=== PATIENT | male | born 1935 | race Caucasian/White ===

== ENCOUNTER 2019-06-03 08:52 | Inpatient (IN) | payer MEDICARE ==
[2019-06-03] MEDS ORDERED: Senokot S 8.6-50 MG TAB PO PRN (13:06)
[2019-06-03] MEDS ORDERED: Acetaminophen 325 MG TAB PO PRN (13:06)
[2019-06-03] MEDS ORDERED: HYDROcodone/Acetaminophen 5/325 mg Tablet PO PRN (13:06)
[2019-06-03 13:14] LABS: Troponin I 0.032 ng/mL (< 0.028)
[2019-06-03] MEDS ORDERED: HumaLOG 300 UNITS/3 ML VIAL SC PRN (13:20)
[2019-06-03] MEDS ORDERED: Dextrose 50% Abboject 50 ML SYRINGE SLOW IVP PRN (13:20)
[2019-06-03] MEDS ORDERED: Dextrose 5% in Water 1,000 ML IV PRN (13:20)
--- NOTE | 2019-06-03 14:48 | HP ---
PRIMARY CARE PHYSICIAN: Dr. Coe. CHIEF COMPLAINT: Chest pain. HISTORY OF PRESENT ILLNESS: Mr. Perez is a very pleasant 84-year-old male, who was seen at the emergency room in [facility] for evaluation of chest pain, which he said it woke him up from sleep at 04:30 a.m. He took no medication except 2 baby aspirin, which did not help. Pain was worse when getting ready for the day and is still present. Describes pain as a throbbing pain in left side of his chest with no radiation. Denies any diaphoresis, shortness of breath, or nausea. Denies any medical problems except for BPH. No fever. No history of CAD, no family history of CAD, and has not had a need for any cardiac evaluation in his past. He has had no history of DVT, PE, recent travel, immobilization, surgery, cancer, or hemoptysis. Surgical history, only had an ulcer that required surgery and reports that he had a partial gastrectomy at the age of 25. During his evaluation at the ER in [place], the patient was noted to have his heart rate dipped into the mid 30s without apparent AVB and was improved with an administration of an amp of atropine. At that point, his O2 sats lowered into the mid 80s despite supplemental O2 by nasal cannula. The patient reported near complete relief of his pain and was placed on a non-rebreather at that point, which resolved his hypoxia. He remained hemodynamically stable for the remainder of his stay. The Hospitalist Service was initially contacted for direct admit from [place], but due to his bradycardic event and his hypoxia, it was decided that he needed to come to the ER, ER to ER transfer prior to admission. His initial EKG in the [facility] ER is normal sinus rhythm, beats per minute 63 with infrequent premature ventricular complexes. ST segments and T-waves are normal. [place] is normal. A repeat EKG showed a normal sinus rhythm, beats at 92. No changes. No STEMI. He was transferred to [facility] ER for admission for chest pain and subsequent bradycardia. He was noted to have elevated glucose at 256 without any history of diabetes. The patient will be admitted to the observation unit for further management. REVIEW OF SYSTEMS: The patient reports chest pain. Denies any radiation. Denies any chest pain currently. Denies any diaphoresis, syncope, palpitations, cough, shortness of breath, fever, chills. Denies any dysuria, output changes. All other systems are reviewed and are negative unless mentioned in the HPI. PAST MEDICAL HISTORY: 1. BPH. 2. He has had a stomach ulcer when he was younger. PAST SURGICAL HISTORY: Partial gastrectomy at the age of 25 for an ulcer. SOCIAL HISTORY: Lives in [place] with his . He denies any alcohol or drug use. He has no smoking history. ALLERGIES: NONE. CURRENT MEDICATIONS: 1. Flomax 0.4 mg p.o. once a day. 2. Baby aspirin 81 mg 2 tabs once a day. PHYSICAL EXAMINATION: VITAL SIGNS: Blood pressure 141/82, pulse is 87, respirations 23, temp is 97.6, O2 sats are 100% on non-rebreather. Currently, the patient is 95% on room air. LABORATORY DATA: White blood cell count 10.6, hemoglobin 10.8, hematocrit 37.2, and platelet count is 202. Sodium 133, potassium 4.4, chloride 105, carbon dioxide 20, creatinine 1.16, estimated GFR 76, BUN is 15, glucose is 256, calcium is 8.7. Liver enzymes are unremarkable. The last lipids we have from 2018 were also unremarkable. PLAN/ASSESSMENT: 1. Chest pain and then bradycardia while he was in the emergency room, which was treated with an amp of atropine. We will ask Cardiology to consult. Order an echocardiogram. We will repeat lipids. Order TSH, A1c. Continue aspirin daily. 2. Hyperglycemia without any history of diabetes. Again, we will order an A1c. We will trend. 3. History of benign prostatic hypertrophy. We will continue the Flomax. 4. Deep venous thrombosis and gastrointestinal prophylaxis have been started. 5. Case was discussed with Dr. Tenorio, who agrees with the plan. 6. Hospital course dependent on clinical findings. Job ID: [id number]
[2019-06-03 15:49] LABS: Hemoglobin A1c 6.7 % (4.0-6.0)
[2019-06-03 16:05] VITALS: BMI 21.0
[2019-06-03 16:06] LABS: Troponin I 0.026 ng/mL (< 0.028)
[2019-06-03] MEDS: Famotidine 20 MG TAB PO SCH (19:38)
[2019-06-04 05:51] LABS: #Lymphocytes 1.4 thou/uL (1.20-3.40); #Neutrophils 5.7 thou/uL (1.40-6.50); %Basophils 0.5 % (0.0-1.0); %Eosinophils 0.3 % (0.0-10.0); %Lymphocytes 17.3 % (21.0-51.0); %Monocytes 12.4 % (0.0-10.0); %Neutrophils 69.5 % (42.0-75.0); Mean Corpuscular HGB CONC 32.1 g/dL (32.0-36.0); Mean Corpuscular Hemoglobin 26.3 pg (27.0-31.0); Mean Platelet Volume 8.9 fL (7.4-10.4); Platelet Count 184 thou/uL (130-400); RBC Distribution Width 15.4 % (11.5-14.5); Red Blood Cell (RBC) Count 4.19 mill/uL (4.70-6.10); White Blood Cell (WBC) Count 8.2 thou/uL (4.8-10.8)
[2019-06-04 06:13] LABS: Anion Gap 10 mmol/L (10-20); BUN (Urea Nitrogen) 12 mg/dL (8.4-25.7); Calc. Creatinine Clearance 57 mL/min (70-130); Calcium 8.6 mg/dL (7.8-10.44); Carbon Dioxide 26 mmol/L (23-31); Cardiac Risk 2.3 (Less than 4.5); Chloride 105 mmol/L (98-107); Cholesterol 152 mg/dl (< 200 Desired); Estimated GFR-MDRD 77; Glucose 131 mg/dL (83-110); HDL Cholesterol 66 mg/dL (>60 Neg Risk); LDL Cholesterol, Calculated 79 mg/dL; Potassium 4.5 mmol/L (3.5-5.1); Sodium 136 mmol/L (136-145); Triglycerides 37 mg/dL (Less than 150)
[2019-06-04] MEDS ORDERED: Prevnar 13-Val Conj/PF 0.5 ML SYRINGE IM ONE (09:00)
[2019-06-04] MEDS ORDERED: FLU VACC TS2019-20(65YR UP)/PF 180 MCG/0.5 ML SYRINGE IM ONE (09:00)
[2019-06-04] MEDS ORDERED: Enoxaparin Sodium 40 MG/0.4 ML SYRINGE SC SCH (09:00)
[2019-06-04] MEDS: Famotidine 20 MG TAB PO SCH ×2 (10:18→19:58)
[2019-06-04] MEDS ORDERED: Communication Order-Pharmacy FS SCH (12:30)
--- NOTE | 2019-06-04 13:26 | CON ---
DATE OF CONSULTATION: 06/04/2019 REASON FOR CONSULTATION: Chest pain at rest with borderline cardiac enzymes. HISTORY OF PRESENT ILLNESS: Mr. Tom Perez is a very pleasant 84-year-old gentleman. The patient was with his usual state of good health. 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 He had already drank coffee, he is feeling fine. Then, he had substernal chest pain. He allowed his family to bring him to the emergency room. While he was in the emergency room, he had severe substernal chest pain and then developed symptomatic bradycardia. He required intravenous atropine to improve his heart rate. He said he has never had episodes like that before. He has been feeling okay now. The patient ended up normalized active. He does chores around [place] 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 He otherwise has been in good physical condition. The patient also was given nitroglycerin as well as aspirin yesterday. PAST MEDICAL HISTORY: The patient's only medicines were Flomax. No history of hypertension. No hypercholesterolemia. Otherwise, he had been a very healthy gentleman. REVIEW OF SYSTEMS: CONSTITUTIONAL: No significant weight gain or loss. VISION: No changes. HEARING: No changes. PULMONARY: No cough or wheezing. GASTROINTESTINAL: No nausea, vomiting, or diarrhea. SKIN: No rashes. NEUROLOGIC: No unilateral weakness or numbness. PSYCHIATRIC: No unusual depression or anxiety. HEMATOLOGIC: No unusual bruising. GENITOURINARY: No burning with urination. SOCIAL HISTORY: No alcohol or tobacco. FAMILY HISTORY: Noncontributory. No mention of heart disease at a young age. PHYSICAL EXAMINATION: GENERAL: On examination, his blood pressure 154/84 and pulse 80 and it is regular. HEENT: Eyes, sclerae nonicteric. Mouth, mucous membranes moist. NECK: Supple. No lymphadenopathy. LUNGS: Clear. No wheezing, rales, or rhonchi. CARDIAC: Normal S1 and normal S2. There is no murmur, rub, or gallop. ABDOMEN: Soft and nontender. EXTREMITIES: Warm and dry. No clubbing or cyanosis. There is no edema. Good peripheral pulses. PERTINENT LABORATORIES: Blood sugar is elevated at 188. The patient also had an episode of nonsustained ventricular tachycardia, 6 beats yesterday evening. Pertinent laboratory also the patient's LDL cholesterol 79. Troponin level of 0.032 indeterminate. ASSESSMENT: 1. Chest pain suggestive of unstable angina. 2. Symptomatic bradycardia requiring atropine associated with chest pain. 3. Nonsustained ventricular tachycardia. PLAN: Recommending proceed to cardiac catheterization, may have a severe coronary stenosis. Discussed options including stress testing instead of catheterization. Discussed the catheterization would give him a more definitive answer and may give him more definitive therapy if stent implantation is indicated for a severe lesion. Discussed risk of catheterization, stroke, heart attack, iodine allergy, and loss of blood supply to leg or kidney. Discusses the risk of stent including those above plus vessel perforation, bleeding, bleeding at the catheterization site, emergency bypass surgery, and stent thrombosis and restenosis. He understands and wished to proceed. We will arrange for this tomorrow. Job ID: [id number]
--- NOTE | 2019-06-04 18:03 | PDOC.HOSPP ---
- Subjective Encounter Date: 06/04/19 Encounter Time: 17:55 Subjective: f/u for CP with subsequent bradycardia and hypoxia receiving Atropine x 1 dose in ED. Remains in NSR and feels ok overall. Cardiology planning on [facility] in am. - Objective Vital Signs & Weight: Vital Signs (12 hours) Temp Pulse Resp BP Pulse Ox 06/04/19 16:30 97.8 F 73 16 163/74 H 95 06/04/19 11:49 97.9 F 80 20 154/81 H 97 06/04/19 08:10 98.5 F 76 18 167/81 H 95 Weight Weight 151 lb 1.6 oz I&O: 06/03/19 06/04/19 06/05/19 06:59 06:59 06:59 Intake Total 480 Output Total 0 Balance 480 Result Diagrams: 06/04/19 05:09 06/04/19 05:09 Additional Labs: Accuchecks 06/04/19 06/03/19 10:43 21:18 POC Glucose 148 H 188 H Laboratory Tests 06/03/19 06/03/19 06/03/19 09:17 12:34 15:24 Hemoglobin A1c Troponin I 0.015 0.032 H 0.026 Triglycerides Cholesterol LDL Cholesterol, Calc HDL Cholesterol TSH 3rd Generation 06/03/19 06/03/19 06/04/19 15:24 15:24 05:09 Hemoglobin A1c 6.7 H Troponin I Triglycerides 37 Cholesterol 152 LDL Cholesterol, Calc 79 HDL Cholesterol 66 TSH 3rd Generation 0.4094 Radiology Reviewed by me: Yes (2D echo - EF 55-60%, mod LAE) EKG Reviewed by me: Yes (Tele - SR) Hospitalist ROS - Medication Medications: Active Medications Generic Name Dose Route Start Last Admin Trade Name Freq PRN Reason Stop Dose Admin Famotidine 20 mg 06/03/19 21:00 06/04/19 10:18 Pepcid PO 20 mg BID MALIKA Administration - Exam General Appearance: NAD, awake alert Eye: PERRL, anicteric sclera ENT: normocephalic atraumatic, no oropharyngeal lesions Neck: supple, symmetric, no JVD, no thyromegaly, no lymphadenopathy Heart: RRR, no murmur, no gallops, no rubs, normal peripheral pulses Respiratory: CTAB, no wheezes, no rales, no ronchi, normal chest expansion Gastrointestinal: soft, non-tender, non-distended, normal bowel sounds Extremities: no cyanosis, no clubbing, no edema Skin: normal turgor, no lesions Neurological: cranial nerve grossly intact, no new deficit Musculoskeletal: normal tone, normal strength Psychiatric: normal affect, A&O x 3 Hosp A/P (1) Chest pain Code(s): R07.9 - CHEST PAIN, UNSPECIFIED Status: Acute Plan: ? ischemia leading to angina and bradycardia, plan for heart cath in am, resume ASA 81mg daily, EF 55-60% (2) Bradycardia Code(s): R00.1 - BRADYCARDIA, UNSPECIFIED Status: Acute Plan: ? secondary to ischemia, see above in #1 (3) HTN (hypertension) Code(s): I10 - ESSENTIAL (PRIMARY) HYPERTENSION Status: Chronic Qualifiers: Hypertension type: essential hypertension Qualified Code(s): I10 - Essential (primary) hypertension Plan: Resume Proscar and monitor BP response, may need additional coverage for optimal control (4) DM w/o complication type II, uncontrolled Code(s): E11.65 - TYPE 2 DIABETES MELLITUS WITH HYPERGLYCEMIA Status: Chronic Plan: Untreated currently, will discuss options for low-dose oral hypoglycemics for d/ c - Plan out of bed/ambulate, DVT proph w/SCDs Stable currently Resume ASA 81mg daily Resume Proscar Plan for heart catheterization in am Likely home in 24h
[2019-06-05] MEDS: Sodium Chloride 0.9% 1,000 ML IV SCH ×2 (05:43→18:44)
[2019-06-05] MEDS: Famotidine 20 MG TAB PO SCH ×2 (07:04→20:48)
[2019-06-05] MEDS ORDERED: Finasteride 5 MG TAB PO SCH (09:00)
[2019-06-05] MEDS ORDERED: Aspirin 81 mg Enteric Coated Tablet PO SCH (09:00)
[2019-06-05] MEDS ORDERED: Lidocaine 1% (PF) 30 ML VIAL ONE (09:47)
[2019-06-05] MEDS ORDERED: Nitroglycerin 100MG/250ML BOT 250 ML ONE (10:41)
[2019-06-05] MEDS ORDERED: Sodium Chloride 0.9% 200 ML IV PRN (11:08)
[2019-06-05] MEDS ORDERED: Nitroglycerin 0.4 MG TAB (25 Tab Bottle) SL PRN (11:08)
[2019-06-05] MEDS ORDERED: Acetaminophen/Codeine 30-300mg Tablet PO PRN ×2 (11:08)
[2019-06-05] MEDS ORDERED: Communication Order-Pharmacy FS ONE (12:03)
--- NOTE | 2019-06-05 13:32 | CON ---
DATE OF CONSULTATION: 06/05/2019 REASON FOR CONSULTATION: Evaluate the patient for coronary artery bypass grafting. CONSULTING PHYSICIAN: Rober Zee MD HISTORY OF PRESENT ILLNESS: Mr. Perez is an 84-year-old gentleman, who was admitted to the hospital through the emergency department. He was noted at home to have had chest pain and fatigue and really just not feeling good at home over the last 24 hours. He came to the emergency department, his EKG was normal. His initial troponin was 0.015, which elevated to 0.032 during his early admission. Today, he was taken to the cardiac catheterization lab and found to have severe LAD and right coronary stenosis with good bypassable distal targets. Ejection fraction is approximately 70% on ventriculogram. I have been asked to see him and discuss coronary artery bypass grafting. PAST MEDICAL HISTORY: BPH. PAST SURGICAL HISTORY: None. CURRENT MEDICATIONS: At home; 1. Proscar 5 mg daily. 2. Aspirin 81 mg daily. ALLERGIES: NONE. SOCIAL HISTORY: He does not use tobacco or alcohol. PHYSICAL EXAMINATION: GENERAL: This is a well-developed, well-nourished man, resting comfortably in bed. VITAL SIGNS: Height is 5 feet and 11 inches, weight is 151 pounds, BSA is 1.85. Temperature is 97.8, pulse is 84 and regular, and blood pressure is 163/78. HEENT: Sclerae are nonicteric. Pupils are equal and round bilaterally. NECK: Supple without bruit. CHEST: Clear bilaterally. HEART: Rhythm is regular without murmur. ABDOMEN: Soft and nontender, without mass. EXTREMITIES: There is no edema. VASCULAR: He has palpable carotid, radial femoral, and dorsalis pedis pulses bilaterally. VENOUS: There is no venous varicosities or venous stasis changes. PSYCHIATRIC: He is awake, alert, and oriented to person, place, and time. ASSESSMENT AND PLAN: This is a pleasant 84-year-old gentleman, who is in the hospital with chest pain and non-ST elevation myocardial infarction. Catheterization is showing left anterior descending, right coronary stenosis. Bypassable targets include a left anterior descending and distal right coronary. He is agreeable to proceed tomorrow with bypass as above. Job ID: [id number]
--- NOTE | 2019-06-05 18:08 | RAD ---
FRONTAL RADIOGRAPH CHEST: Date: 06/05/19 COMPARISON: 06/03/19. HISTORY: Evaluate chest prior to CABG. FINDINGS: Stable mild increased linear interstitial density and pulmonary hyperinflation. Heart and mediastinal contours stable. No pneumothorax, pleural fluid, focal consolidation, or alveolar edema. IMPRESSION: No significant interval change. POS: [facility]
--- NOTE | 2019-06-05 19:14 | PDOC.HOSPP ---
- Subjective Encounter Date: 06/05/19 Encounter Time: 16:30 Subjective: f/u for chest pain, NSTEMI with heart cath showing 2v CAD with recs for CABG. Plan for CABG on 05/07/19 - Objective Vital Signs & Weight: Vital Signs (12 hours) Temp Pulse Resp BP Pulse Ox 06/05/19 15:35 98.2 F 76 19 127/60 96 06/05/19 12:00 61 111/61 06/05/19 11:09 98 Weight Weight 151 lb 1.6 oz I&O: 06/04/19 06/05/19 06/06/19 06:59 06:59 06:59 Intake Total 480 970 Output Total 0 Balance 480 970 Result Diagrams: 06/04/19 05:09 06/04/19 05:09 Additional Labs: Accuchecks 06/05/19 06/05/19 06/04/19 16:32 05:43 21:01 POC Glucose 133 H 113 H 127 H Laboratory Tests 06/03/19 06/03/19 06/03/19 09:17 12:34 15:24 Hemoglobin A1c Troponin I 0.015 0.032 H 0.026 Triglycerides Cholesterol LDL Cholesterol, Calc HDL Cholesterol TSH 3rd Generation 06/03/19 06/03/19 06/04/19 15:24 15:24 05:09 Hemoglobin A1c 6.7 H Troponin I Triglycerides 37 Cholesterol 152 LDL Cholesterol, Calc 79 HDL Cholesterol 66 TSH 3rd Generation 0.4094 Radiology Reviewed by me: Yes ([facility] - severe 2v CAD, EF 60%) EKG Reviewed by me: Yes (Tele - SR) Hospitalist ROS - Medication Medications: Active Medications Generic Name Dose Route Start Last Admin Trade Name Freq PRN Reason Stop Dose Admin Aspirin 81 mg 06/05/19 09:00 06/05/19 07:04 Ecotrin PO 81 mg DAILY MALIKA Administration Famotidine 20 mg 06/03/19 21:00 06/05/19 07:04 Pepcid PO 20 mg BID MALIKA Administration Finasteride 5 mg 06/05/19 09:00 06/05/19 07:04 Proscar PO 5 mg DAILY MALIKA Administration - Exam General Appearance: NAD, awake alert Eye: PERRL, anicteric sclera ENT: normocephalic atraumatic, no oropharyngeal lesions Neck: supple, symmetric, no JVD, no thyromegaly, no lymphadenopathy Heart: RRR, no murmur, no gallops, no rubs, normal peripheral pulses Respiratory: CTAB, no wheezes, no rales, no ronchi, normal chest expansion Gastrointestinal: soft, non-tender, non-distended, normal bowel sounds, no palpable masses Extremities: no cyanosis, no clubbing, no edema Skin: normal turgor, no lesions Neurological: cranial nerve grossly intact, no focal deficits, no new deficit Musculoskeletal: normal tone, normal strength Psychiatric: normal affect, A&O x 3 Hosp A/P (1) NSTEMI (non-ST elevated myocardial infarction) Code(s): I21.4 - NON-ST ELEVATION (NSTEMI) MYOCARDIAL INFARCTION Status: Acute Plan: Continue ASA, Nitroglycerin, see below for mgmt (2) 2-vessel coronary artery disease Code(s): I25.10 - ATHSCL HEART DISEASE OF [place] CORONARY ARTERY W/O ANG PCTRS Status: Chronic Plan: Plan for CABG in am 06/06/19 (3) Chest pain Code(s): R07.9 - CHEST PAIN, UNSPECIFIED Status: Acute Plan: Secondary to #1 (4) Bradycardia Code(s): R00.1 - BRADYCARDIA, UNSPECIFIED Status: Acute Plan: Improved, continue mgmt as outlined previously (5) HTN (hypertension) Code(s): I10 - ESSENTIAL (PRIMARY) HYPERTENSION Status: Chronic Qualifiers: Hypertension type: essential hypertension Qualified Code(s): I10 - Essential (primary) hypertension (6) DM w/o complication type II, uncontrolled Code(s): E11.65 - TYPE 2 DIABETES MELLITUS WITH HYPERGLYCEMIA Status: Chronic Plan: ISS, start Glucophage for home after CABG - Plan continue antibiotics, social media senior associate, respiratory therapy, out of bed/ambulate , DVT proph w/SCDs Stable currently Resume ASA 81mg daily Resume Proscar Plan for CABG in am 06/06/19 Convert to inpt status
[2019-06-06] MEDS ORDERED: CEFAZOLIN 1 GM VIAL SLOW IVP SCH (06:00)
[2019-06-06] MEDS ORDERED: Albumin 5% 500 ML ONE ×2 (06:41→10:58)
[2019-06-06] MEDS ORDERED: Dexamethasone 4 mg/ml Vial ONE (10:58)
[2019-06-06] MEDS ORDERED: Bupivacaine HCl 0.5%/Epinephrine 1:200,000/PF 30 ml Vial ONE (10:58)
[2019-06-06] MEDS ORDERED: Heparin 10,000 UNITS/1 ML VIAL 30,000 UNITS in Sodium Chloride 0.9% 1,000 ML FS SCH (14:30)
[2019-06-06] MEDS ORDERED: Midazolam HCl 5 mg/5 ml Vial ONE ×2 (15:55→18:59)
[2019-06-06] MEDS ORDERED: Fentanyl 250 MCG/5 ML VIAL ONE (15:55)
[2019-06-06] MEDS ORDERED: PHENYLEPHRINE-NS 100 MCG/ML 10 ML SYRINGE ONE ×2 (18:14→19:38)
[2019-06-06] MEDS ORDERED: Rocuronium Bromide 50 MG/5 ML VIAL ONE (19:02)
[2019-06-06] MEDS ORDERED: Acetaminophen 325 MG TAB PO PRN (19:50)
[2019-06-06] MEDS ORDERED: hydrALAZINE 20 MG/ML VIAL SLOW IVP PRN (19:50)
[2019-06-06] MEDS ORDERED: Hetastarch 6% 500 ML 500 ML IVPB PRN (19:50)
[2019-06-06] MEDS ORDERED: Ondansetron PF 4 MG/2 ML Vial IVP PRN (19:50)
[2019-06-06] MEDS ORDERED: Potassium Chloride 20 MEQ/100 ML PREMIX BAG IVPB PRN (19:50)
[2019-06-06] MEDS ORDERED: Mag-Al 1200 mg/1200 mg/30 ML UDCUP PO PRN (19:50)
[2019-06-06] MEDS ORDERED: Fentanyl 100 MCG/2 ML VIAL SLOW IVP PRN ×2 (19:50)
[2019-06-06] MEDS ORDERED: traMADol HCl 50 MG TAB PO PRN ×2 (19:50)
[2019-06-06] MEDS ORDERED: Bisacodyl 5 MG TAB PO PRN (19:50)
[2019-06-06] MEDS ORDERED: Bisacodyl 10 MG SUPP PR PRN (19:50)
[2019-06-06] MEDS ORDERED: Morphine 2 MG/ML SYRINGE SLOW IVP PRN (19:50)
[2019-06-06] MEDS ORDERED: Nitroglycerin 50 MG/250 ML BOT 250 ML IVPB PRN (19:50)
[2019-06-06] MEDS ORDERED: Norepinephrine 8 MG/0.9% NS 250 ML IVPB PRN (19:50)
[2019-06-06] MEDS ORDERED: Guaifenesin DM 100-10/5 ML UDCUP PO PRN (19:50)
[2019-06-06] MEDS ORDERED: D5 1/2 NS w/20 mEq KCL 1,000 ML IV SCH (19:50)
[2019-06-06] MEDS ORDERED: Dextrose 50% Abboject 50 ML SYRINGE SLOW IVP PRN (19:59)
[2019-06-06] MEDS ORDERED: Dextrose 5% in Water 1,000 ML IV PRN (19:59)
[2019-06-06 20:03] LABS: #Basophils 0.1 thou/uL (0.0-0.2); #Eosinphils 0.2 thou/uL (0.0-0.7); #Lymphocytes 2.8 thou/uL (1.20-3.40); #Neutrophils 14.1 thou/uL (1.40-6.50); %Basophils 0.3 % (0.0-1.0); %Eosinophils 1.3 % (0.0-10.0); %Lymphocytes 15.4 % (21.0-51.0); %Monocytes 5.4 % (0.0-10.0); %Neutrophils 77.6 % (42.0-75.0); Hemoglobin 10.2 g/dL (14.0-18.0); Mean Corpuscular HGB CONC 32.1 g/dL (32.0-36.0); Mean Corpuscular Hemoglobin 26.7 pg (27.0-31.0); Mean Corpuscular Volume 83.2 fL (78.0-98.0); Mean Platelet Volume 8.5 fL (7.4-10.4); Platelet Count 178 thou/uL (130-400); RBC Distribution Width 15.7 % (11.5-14.5); Red Blood Cell (RBC) Count 3.83 mill/uL (4.70-6.10); White Blood Cell (WBC) Count 18.2 thou/uL (4.8-10.8)
[2019-06-06 20:09] LABS: Base Excess (BEa) -8.8 mEq/L (-2.0 to +3.0); CO2 Tension 42.3 mmHg (35.0-45.0); Calcium, Ionized 1.01 mmol/L (1.12-1.30); Carboxyhemoglobin (COHb) 0.5 gm% (0.0-3.0); Hemoglobin (Hb) 10.9 g/dL (14.0-18.0); O2 Tension (PaO2) 116.4 mmHg (> 60.0); Potassium - ABG Lab 4.22 mmol/L (3.70-5.30)
[2019-06-06 20:11] LABS: INR-International Normal Ratio 1.4; PTT 31.8 SEC (22.9-36.1); Prothrombin Time 17.4 SEC (12.0-14.7)
[2019-06-06 20:17] LABS: pH, Arterial 7.25 (7.35-7.45)
--- NOTE | 2019-06-06 20:17 | RAD ---
Frontal view chest COMPARISON: 06/05/2019 FINDINGS: Endotracheal tube is present with tip at inferior thoracic inlet level. Mediastinal drainag e catheter tubing is seen. There is a right subclavian venous catheter, with tip overlying right atrium. Cardiac silhouette is enlarged. There are sternotomy wires. Lungs are hyperinflated. There is left basilar density indicative of pleural fluid with adjacent atelectasis and/or pneumonia. Minimal pleural-based density at the inferior right chest is seen. Bilateral perihilar linear densiti es indicate mild vascular congestion. IMPRESSION: Postoperative chest with supportive lines and tubes as above. COPD Left basilar density indicative of pleural fluid with adjacent atelectasis and/or pneumonia. Additional details are discussed above. Transcribed Date/Time: 06/06/2019 8:33 PM
[2019-06-06 20:18] LABS: ALV-art Gradient 258.525 (0-20)
[2019-06-06] MEDS: Insulin Regular 300 UNITS/3 ML VIAL SC PRN (20:19)
[2019-06-06 20:22] LABS: Anion Gap 14 mmol/L (10-20); BUN (Urea Nitrogen) 11 mg/dL (8.4-25.7); Calc. Creatinine Clearance 78 mL/min (70-130); Calcium 6.5 mg/dL (7.8-10.44); Carbon Dioxide 18 mmol/L (23-31); Chloride 112 mmol/L (98-107); Estimated GFR-MDRD Greater than 90; Glucose 128 mg/dL (83-110); Potassium 4.3 mmol/L (3.5-5.1); Sodium 140 mmol/L (136-145)
[2019-06-06] MEDS: Simvastatin 40 MG TAB PO SCH (20:30)
[2019-06-06] MEDS ORDERED: Famotidine/PF 20 mg/2ml Vial SLOW IVP SCH (21:00)
[2019-06-06] MEDS: CEFAZOLIN 2 GM in Premix Bag 1 BAG IVPB SCH (22:00)
[2019-06-06] MEDS: Ketorolac Tromethamine 30 MG/ML VIAL IVP SCH (23:00)
[2019-06-06 23:47] LABS: Actual Bicarbonate (HCO3a) 16.2 mEq/L (22-28); Base Excess (BEa) -9.9 mEq/L (-2.0 to +3.0); CO2 Tension 36.2 mmHg (35.0-45.0); Calcium, Ionized 1.03 mmol/L (1.12-1.30); Hemoglobin (Hb) 10.8 g/dL (14.0-18.0); O2 Tension (PaO2) 127.2 mmHg (> 60.0); Potassium - ABG Lab 4.14 mmol/L (3.70-5.30); pH, Arterial 7.27 (7.35-7.45)
[2019-06-06] MEDS ORDERED: Sodium Bicarb 50 MEQ/50 ML VIAL ONE (23:59)
[2019-06-07] MEDS ORDERED: Sodium Bicarb 50 MEQ/50 ML VIAL IVP SCH (00:15)
[2019-06-07] MEDS: Insulin Regular 300 UNITS/3 ML VIAL SC PRN ×2 (01:08→04:16)
[2019-06-07 01:34] LABS: Hemoglobin 10.6 g/dL (14.0-18.0)
--- NOTE | 2019-06-07 01:39 | OP ---
DATE OF PROCEDURE: 06/06/2019 PREOPERATIVE DIAGNOSIS: Coronary artery disease/status post [id number] myocardial infarction. POSTOPERATIVE DIAGNOSIS: Coronary artery disease/status post [id number] myocardial infarction. PROCEDURES PERFORMED: Coronary artery bypass grafting x2; 1. Left internal mammary artery 1.5 mm distal LAD-good conduit target. 2. Reverse saphenous vein to 2.0 mm mid RCA-good conduit target. CONCIERGE MANAGER: Ishmael Arroyo MD ANESTHESIA: General endotracheal, Dr. Julián Major in [facility]. PUMP TIME: 39 minutes. CROSS-CLAMP TIME: 25 minutes. LOW CORE TEMPERATURE: 35 degrees Celsius. RAIL CAR REPAIRER: Marilyn Fay. DRAINS: 24-Italian and 19-Italian chest tubes. SPECIMENS: None. TRANSFUSIONS: None. DRIPS: None. DESCRIPTION OF PROCEDURE: After consent was obtained, the patient was brought to the operating room and placed in supine position on the operating room table. Appropriate central line was placed and general endotracheal anesthesia was induced. The chest and legs were prepped and draped in usual sterile fashion. Greater saphenous vein was harvest from the left thigh utilizing two skip incisions. Wounds were irrigated and closed in layers. Median sternotomy was performed. Left internal mammary artery was harvested as a pedicle graft. The patient was systemically heparinized. Distal pedicle was divided and infused with papaverine. Thymic fat and pericardium were divided with electrocautery. Pericardial stay sutures were placed. Aortic and atrial cannulation were performed. After adequate heparinization, retrograde prime was performed. The patient was placed on cardiopulmonary bypass. Distal targets were marked. Aortic cross-clamp was applied and antegrade sanguineous cardioplegic arrest was obtained. 1 L of antegrade cold [place] cardioplegia was given. Topical cold solution was used. Reverse saphenous vein was anastomosed to RCA in an end-to-side fashion with running 7-0 Prolene suture. During the anastomosis, the patient began to fibrillate. 500 mL of additional cardioplegia was given including down the graft. Mammary artery was brought through the window in the pericardium and anastomosed to the distal LAD in an end-to-side fashion with running 7-0 Prolene suture. On release of mammary clamps, good hooding anastomosis and good distal flow. Pedicle screw sutured with interrupted 6-0 Prolene suture. Cross-clamp was removed and partial occluding clamp placed. Saphenous vein was anastomosed to punch site in the aorta with running 6-0 Prolene suture. Partial occluding clamp was removed and graft was deaired. Anastomoses were inspected for hemostasis, which was good. The patient was warmed and weaned from cardiopulmonary bypass. After resumption of sinus rhythm, good hemodynamics, temperature greater than 36.5, bypass was discontinued. Transfusion was given. A 19-Italian chest tube was placed in the left pleural cavity and a 24-Italian chest tube was placed in the pericardium. Vancomycin paste was used on the sternal edges. After adequate hemostasis had been obtained, sternum was closed with #7 wire. The sternum was treated with platelet rich plasma and wire was twisted and buried. Wounds were irrigated and treated with platelet poor plasma and closed in multiple layers. Needle, sponges, and instrument counts were all reported as correct at the end of the procedure. The patient tolerated the procedure well and was transferred to the intensive care unit in stable condition. Job ID: [id number]
[2019-06-07 01:41] LABS: Potassium 4.4 mmol/L (3.5-5.1)
[2019-06-07 03:45] LABS: #Lymphocytes 0.5 thou/uL (1.20-3.40); #Monocytes 0.8 thou/uL (0.11-0.59); #Neutrophils 11.4 thou/uL (1.40-6.50); %Basophils 0.1 % (0.0-1.0); %Lymphocytes 3.5 % (21.0-51.0); %Monocytes 6.2 % (0.0-10.0); %Neutrophils 90.2 % (42.0-75.0); Hemoglobin 10.7 g/dL (14.0-18.0); Mean Corpuscular HGB CONC 32.3 g/dL (32.0-36.0); Mean Corpuscular Hemoglobin 26.7 pg (27.0-31.0); Mean Corpuscular Volume 82.5 fL (78.0-98.0); Mean Platelet Volume 8.6 fL (7.4-10.4); Platelet Count 183 thou/uL (130-400); RBC Distribution Width 15.7 % (11.5-14.5); Red Blood Cell (RBC) Count 4.01 mill/uL (4.70-6.10); White Blood Cell (WBC) Count 12.7 thou/uL (4.8-10.8)
[2019-06-07 04:00] LABS: Anion Gap 15 mmol/L (10-20); BUN (Urea Nitrogen) 15 mg/dL (8.4-25.7); Calc. Creatinine Clearance 67 mL/min (70-130); Calcium 7.3 mg/dL (7.8-10.44); Carbon Dioxide 19 mmol/L (23-31); Chloride 110 mmol/L (98-107); Estimated GFR-MDRD Greater than 90; Glucose 212 mg/dL (83-110); Potassium 4.4 mmol/L (3.5-5.1); Sodium 140 mmol/L (136-145)
[2019-06-07] MEDS: Ketorolac Tromethamine 30 MG/ML VIAL IVP SCH ×4 (05:54→23:34)
[2019-06-07] MEDS: CEFAZOLIN 2 GM in Premix Bag 1 BAG IVPB SCH ×2 (06:00→16:20)
--- NOTE | 2019-06-07 07:57 | RAD ---
PORTABLE CHEST: Date: 06/07/19 Supine exam. INDICATION: Postop open heart. CCU follow-up. COMPARISON: 06/06/19. FINDINGS: ET tube has been removed. Postop sternotomy changes are noted. Bibasilar infiltrates or atelectasis a nd small effusions. Mild vascular engorgement and mild cardiomegaly. IMPRESSION: No acute change from yesterday. Small effusions and bibasilar atelectasis or infiltrates, more pronou nced in the left lung base. POS: [facility]
[2019-06-07] MEDS ORDERED: Artificial Tears 18 DROP/0.9 ML EA EYE PRN (08:06)
[2019-06-07] MEDS ORDERED: Nitroglycerin 0.4 MG TAB (25 Tab Bottle) SL PRN (08:06)
[2019-06-07] MEDS ORDERED: Milk Of Magnesia 30 ML UDCUP PO PRN (08:06)
[2019-06-07] MEDS ORDERED: Mineral Oil ENEMA PR PRN (08:06)
[2019-06-07] MEDS ORDERED: Mag-Al 1200 mg/1200 mg/30 ML UDCUP PO PRN (08:06)
[2019-06-07] MEDS ORDERED: Bisacodyl 5 MG TAB PO PRN (08:06)
[2019-06-07] MEDS ORDERED: diphenhydrAMINE 25 MG CAP PO PRN (08:06)
[2019-06-07] MEDS ORDERED: Guaifenesin DM 100-10/5 ML UDCUP PO PRN (08:06)
[2019-06-07] MEDS ORDERED: Bisacodyl 10 MG SUPP PR PRN (08:06)
[2019-06-07] MEDS ORDERED: Zolpidem Tartrate 5 MG TAB PO PRN (08:06)
[2019-06-07] MEDS ORDERED: Aspirin 325 mg Enteric Coated Tablet PO SCH (09:00)
[2019-06-07] MEDS: Aspirin 325 MG TAB PO SCH (09:15)
--- NOTE | 2019-06-07 13:57 | PDOC.HOSPP ---
- Subjective Encounter Date: 06/07/19 Encounter Time: 13:50 Subjective: f/u s/p 2v CABG POD #1. Feels good today, ambulating, voiding ok. Minimal CP. - Objective Vital Signs & Weight: Vital Signs (12 hours) Temp Pulse Pulse BP BP Pulse Ox 06/07/19 11:39 97.8 F 06/07/19 08:57 78 83 102/69 111/67 99 06/07/19 08:00 97.9 F 06/07/19 04:00 97.6 F Weight Weight 154 lb 1.65 oz Most Recent Monitor Data Heart Rate from ECG 80 NIBP 140/80 NIBP BP-Mean 100 Respiration from ECG 24 SpO2 100 I&O: 06/06/19 06/07/19 06/08/19 06:59 06:59 06:59 Intake Total 1527 1019 Output Total 1010 120 Balance 517 899 Result Diagrams: 06/07/19 03:15 06/07/19 03:15 Additional Labs: Accuchecks 06/07/19 06/07/19 06/06/19 04:12 00:44 19:54 POC Glucose 171 H 161 H 129 H 06/06/19 06/06/19 06/06/19 19:37 18:31 17:53 POC Glucose 117 H 110 107 06/06/19 16:41 POC Glucose 116 H Laboratory Tests 06/03/19 06/03/19 06/03/19 09:17 12:34 15:24 Hemoglobin A1c Troponin I 0.015 0.032 H 0.026 Triglycerides Cholesterol LDL Cholesterol, Calc HDL Cholesterol TSH 3rd Generation 06/03/19 06/03/19 06/04/19 15:24 15:24 05:09 Hemoglobin A1c 6.7 H Troponin I Triglycerides 37 Cholesterol 152 LDL Cholesterol, Calc 79 HDL Cholesterol 66 TSH 3rd Generation 0.4094 Radiology Reviewed by me: Yes (PCXR - bibasilar atelectasis) EKG Reviewed by me: Yes (Tele - SR) Hospitalist ROS - Medication Medications: Active Medications Generic Name Dose Route Start Last Admin Trade Name Freq PRN Reason Stop Dose Admin Aspirin 325 mg 06/07/19 09:00 06/07/19 09:15 Aspirin PO 325 mg DAILY MALIKA Administration Aspirin 325 mg 06/07/19 09:00 06/07/19 09:15 Ecotrin PO Not Given DAILY MALIKA Cefazolin Sodium/Dextrose 2 gm 50 mls @ 100 mls/hr 06/06/19 23:00 06/07/19 06 :00 / Device IVPB 06/07/19 15:29 50 mls 0700,1500,2300 MALIKA Administration Magnesium Sulfate 1 gm/ Sodium 102 mls @ 102 mls/hr 06/07/19 09:00 06/07/19 09:15 Chloride IVPB 06/08/19 09:59 102 mls QAM MALIKA Administration Ketorolac Tromethamine 15 mg 06/06/19 23:59 06/07/19 12:14 Toradol IVP 06/09/19 23:59 15 mg Q6HR MALIKA Administration Ondansetron HCl 4 mg 06/06/19 19:50 06/07/19 09:19 Zofran IVP 4 mg Q6H PRN Administration Nausea/Vomiting Pantoprazole Sodium 40 mg 06/07/19 09:00 06/07/19 09:15 Protonix PO 40 mg DAILY MALIKA Administration Simvastatin 40 mg 06/06/19 21:00 06/06/19 20:30 Zocor PO Not Given QPM MALIKA Tramadol HCl 50 mg 06/06/19 19:50 06/07/19 09:20 Ultram PO 50 mg Q6H PRN Administration Pain - Exam General Appearance: NAD, awake alert Eye: PERRL, anicteric sclera ENT: normocephalic atraumatic, no oropharyngeal lesions Neck: supple, symmetric, no JVD, no thyromegaly, no lymphadenopathy Heart: RRR, no murmur, no gallops, no rubs, normal peripheral pulses Respiratory: CTAB, no wheezes, no rales, no ronchi Respiratory - other findings: midline incision intact with dressing in place Gastrointestinal: soft, non-tender, non-distended, normal bowel sounds, no palpable masses Extremities: no cyanosis, no clubbing, no edema Skin: normal turgor, no lesions Neurological: cranial nerve grossly intact, no focal deficits, no new deficit Musculoskeletal: normal tone, normal strength Psychiatric: normal affect, A&O x 3 Hosp A/P (1) NSTEMI (non-ST elevated myocardial infarction) Code(s): I21.4 - NON-ST ELEVATION (NSTEMI) MYOCARDIAL INFARCTION Status: Acute Plan: s/p 2v CABG with KENNEDY to LAD, SVG to RCA, POD #1, continue ASA, Lipitor, routine post-CABG protocol (2) 2-vessel coronary artery disease Code(s): I25.10 - ATHSCL HEART DISEASE OF [place] CORONARY ARTERY W/O ANG PCTRS Status: Chronic Plan: See above (3) Chest pain Code(s): R07.9 - CHEST PAIN, UNSPECIFIED Status: Acute (4) Bradycardia Code(s): R00.1 - BRADYCARDIA, UNSPECIFIED Status: Acute Plan: Improved, continue tele monitoring (5) HTN (hypertension) Code(s): I10 - ESSENTIAL (PRIMARY) HYPERTENSION Status: Chronic Qualifiers: Hypertension type: essential hypertension Qualified Code(s): I10 - Essential (primary) hypertension (6) DM w/o complication type II, uncontrolled Code(s): E11.65 - TYPE 2 DIABETES MELLITUS WITH HYPERGLYCEMIA Status: Chronic Plan: ISS, consider Metformin for d/c - Plan plan discussed w/ family, PT/OT, social service technician, out of bed/ambulate Stable currently ASA 325mg daily Resume Proscar OOB with PT IS, bowel regimen
[2019-06-07] MEDS: Simvastatin 40 MG TAB PO SCH (20:05)
[2019-06-08] MEDS: Ketorolac Tromethamine 30 MG/ML VIAL IVP SCH ×4 (06:03→23:55)
[2019-06-08] MEDS: Aspirin 325 MG TAB PO SCH (10:27)
--- NOTE | 2019-06-08 17:10 | PDOC.HOSPP ---
- Subjective Encounter Date: 06/08/19 Encounter Time: 17:10 Subjective: f/u for NSTEMI, s/p CABG x 2v POD #2. Feels ok overall. Ambulating in halls. Voiding appropriately. Mild CP. - Objective Vital Signs & Weight: Vital Signs (12 hours) Temp Pulse Pulse Pulse Resp BP BP 06/08/19 16:00 98.7 F 92 16 06/08/19 13:40 105 H 85 134/63 119/57 L 06/08/19 12:00 98.0 F 91 18 06/08/19 07:59 06/08/19 07:32 97.9 F 83 18 BP BP Pulse Ox Pulse Ox 06/08/19 16:00 114/61 98 06/08/19 13:40 98 06/08/19 12:00 119/63 99 06/08/19 07:59 94 L 06/08/19 07:32 119/58 L 94 L Weight Weight 154 lb 1.65 oz Most Recent Monitor Data Heart Rate from ECG 80 NIBP 140/80 NIBP BP-Mean 100 Respiration from ECG 24 SpO2 100 I&O: 06/07/19 06/08/19 06/09/19 06:59 06:59 06:59 Intake Total 1527 1789 Output Total 1010 1070 50 Balance 517 719 -50 Result Diagrams: 06/07/19 03:15 06/07/19 03:15 Additional Labs: Laboratory Tests 06/03/19 06/03/19 06/03/19 09:17 12:34 15:24 Hemoglobin A1c Troponin I 0.015 0.032 H 0.026 Triglycerides Cholesterol LDL Cholesterol, Calc HDL Cholesterol TSH 3rd Generation 06/03/19 06/03/19 06/04/19 15:24 15:24 05:09 Hemoglobin A1c 6.7 H Troponin I Triglycerides 37 Cholesterol 152 LDL Cholesterol, Calc 79 HDL Cholesterol 66 TSH 3rd Generation 0.4094 EKG Reviewed by me: Yes (Tele - SR) Hospitalist ROS - Medication Medications: Active Medications Generic Name Dose Route Start Last Admin Trade Name Freq PRN Reason Stop Dose Admin Aspirin 325 mg 06/07/19 09:00 06/08/19 10:27 Aspirin PO 325 mg DAILY MALIKA Administration Ketorolac Tromethamine 15 mg 06/06/19 23:59 06/08/19 12:39 Toradol IVP 06/09/19 23:59 15 mg Q6HR MALIKA Administration Ondansetron HCl 4 mg 06/06/19 19:50 06/07/19 09:19 Zofran IVP 4 mg Q6H PRN Administration Nausea/Vomiting Pantoprazole Sodium 40 mg 06/07/19 09:00 06/08/19 10:27 Protonix PO 40 mg DAILY MALIKA Administration Simvastatin 40 mg 06/06/19 21:00 06/07/19 20:05 Zocor PO 40 mg QPM MALIKA Administration Sodium Chloride 10 ml 06/07/19 08:06 06/08/19 12:42 Flush - Normal Saline IVF 10 ml PRN PRN Administration Saline Flush Tramadol HCl 50 mg 06/06/19 19:50 06/07/19 09:20 Ultram PO 50 mg Q6H PRN Administration Pain - Exam General Appearance: NAD, awake alert Eye: PERRL, anicteric sclera ENT: normocephalic atraumatic, no oropharyngeal lesions Neck: supple, symmetric, no JVD, no thyromegaly, no lymphadenopathy Heart: RRR, no murmur, no gallops, no rubs, normal peripheral pulses Respiratory: CTAB, no wheezes, no rales, no ronchi, normal chest expansion Respiratory - other findings: midline chest incision intact Gastrointestinal: soft, non-tender, non-distended, normal bowel sounds Extremities: no cyanosis, no clubbing, no edema Skin: normal turgor, no lesions Neurological: cranial nerve grossly intact, no new deficit Musculoskeletal: normal tone, normal strength Psychiatric: normal affect, A&O x 3 Hosp A/P (1) NSTEMI (non-ST elevated myocardial infarction) Code(s): I21.4 - NON-ST ELEVATION (NSTEMI) MYOCARDIAL INFARCTION Status: Acute (2) 2-vessel coronary artery disease Code(s): I25.10 - ATHSCL HEART DISEASE OF [place] CORONARY ARTERY W/O ANG PCTRS Status: Chronic Plan: s/p CABG x 2v POD #2, continue ASA, Zocor (3) Chest pain Code(s): R07.9 - CHEST PAIN, UNSPECIFIED Status: Acute (4) Bradycardia Code(s): R00.1 - BRADYCARDIA, UNSPECIFIED Status: Acute Plan: Resolved (5) HTN (hypertension) Code(s): I10 - ESSENTIAL (PRIMARY) HYPERTENSION Status: Chronic Qualifiers: Hypertension type: essential hypertension Qualified Code(s): I10 - Essential (primary) hypertension Plan: Relative hypotension currently, holding all antihypertensives (6) DM w/o complication type II, uncontrolled Code(s): E11.65 - TYPE 2 DIABETES MELLITUS WITH HYPERGLYCEMIA Status: Chronic Plan: Plan for home oral hypoglycemic vs dietary mgmt - Plan PT/OT, group social worker, out of bed/ambulate, DVT proph w/SCDs Stable currently ASA 325mg daily Resume Proscar OOB with PT IS, bowel regimen Likely home in am
[2019-06-08] MEDS: Simvastatin 40 MG TAB PO SCH (19:58)
[2019-06-09] MEDS: Ketorolac Tromethamine 30 MG/ML VIAL IVP SCH (05:06)
[2019-06-09] MEDS: Aspirin 325 MG TAB PO SCH (08:49)
--- NOTE | 2019-06-09 09:42 | PRG ---
DATE OF SERVICE: 06/09/2019 SUBJECTIVE: Mr. Perez is doing very well. OBJECTIVE: VITAL SIGNS: Blood pressure is 152/75, pulse 74. LUNGS: Clear. CARDIAC: Normal S1 and S2. ABDOMEN: Soft, nontender. EXTREMITIES: No edema. ASSESSMENT: 1. Status post coronary artery bypass grafting. 2. Preoperative bradycardia, possibly related to ischemia, but we will not give beta-blockers now due to the recent bradycardia. PLAN: 1. Home today. 2. Come back and see us in the office in a few weeks. Job ID: [id number]
--- NOTE | 2019-06-09 11:08 | DIS ---
DATE OF ADMISSION: 06/05/2019 DATE OF DISCHARGE: 06/09/2019 DIAGNOSES: 1. Coronary artery disease. 2. Status post non-ST elevation myocardial infarction. 3. Benign prostatic hyperplasia. PROCEDURES PERFORMED: 1. Cardiac catheterization. 2. Coronary artery bypass grafting x2 -. a. Left internal mammary artery to left anterior descending artery. b. Reverse saphenous vein to distal right coronary artery. DESCRIPTION OF HOSPITAL STAY: Mr. Perez came in the hospital, symptomatic from his coronary artery disease. He underwent cardiac catheterization revealing severe two-vessel disease. He is taken to the operating room, underwent bypass as above on 06/06. He has done well postoperatively. He has had no rhythm disturbances. At the time of discharge, he is ambulatory. Tolerating regular diet, having good bowel and bladder function. Incisions are clean and dry without evidence of infection. DISCHARGE MEDICATIONS: Include; 1. Aspirin 81 mg daily. 2. Zocor 40 mg at bedtime. 3. Proscar 5 mg daily. Note, his blood pressure will not tolerate beta-andrea or SIMA inhibitor at this time. FOLLOWUP: Follow up is with me in [address] Zee in a month. Job ID: [id number]
[2019-06-09 12:17] VITALS: BP 147/71; TEMP 98.9
--- NOTE | 2019-06-10 13:14 | EKG ---
Test Reason : Blood Pressure : / mmHG Vent. Rate : 086 BPM Atrial Rate : 086 BPM P-R Int : 154 ms QRS Dur : 076 ms QT Int : 358 ms P-R-T Axes : 049 018 062 degrees QTc Int : 428 ms Normal sinus rhythm Nonspecific ST abnormality Abnormal ECG Confirmed by SEJAL WEBB MD ([id number]), editor department JODI COX ([id number]) on 06/10/2019 1:14:16 PM Referred By: Confirmed By:SEJAL WEBB MD
== END 2019-06-09 12:12 | disposition home health service (06) | DRG 234 ==
LOC: ERS 08:52 → ERHOLD 10:31 → 2SW 15:57 → OBSVTOIN 06-05 13:03 → CCU 06-06 14:45 → 2NO 06-07 12:52
PROVIDERS: ADMIT Internal Medicine; ATTEND Internal Medicine
PROC: 4A023N7 Measurement of Cardiac Sampling and Pressure, Left Heart, Percutaneous Approach (ICD-10-PCS; principal; 2019-06-05)
PROC: B2111ZZ Fluoroscopy of Multiple Coronary Arteries using Low Osmolar Contrast (ICD-10-PCS; 2019-06-05)
PROC: B2151ZZ Fluoroscopy of Left Heart using Low Osmolar Contrast (ICD-10-PCS; 2019-06-05)
PROC: 02100Z9 Bypass Coronary Artery, One Artery from Left Internal Mammary, Open Approach (ICD-10-PCS; 2019-06-06)
PROC: 021009W Bypass Coronary Artery, One Artery from Aorta with Autologous Venous Tissue, Open Approach (ICD-10-PCS; 2019-06-06)
PROC: 06BQ4ZZ Excision of Left Saphenous Vein, Percutaneous Endoscopic Approach (ICD-10-PCS; 2019-06-06)
DX: I21.4 Non-ST elevation (NSTEMI) myocardial infarction (principal); I47.2 Ventricular tachycardia; I25.10 Atherosclerotic heart disease of native coronary artery without angina pectoris; E11.65 Type 2 diabetes mellitus with hyperglycemia; R09.02 Hypoxemia; N40.0 Benign prostatic hyperplasia without lower urinary tract symptoms; R00.1 Bradycardia, unspecified; Z90.49 Acquired absence of other specified parts of digestive tract
CPT/HCPCS: 36415; 36416; 36430; 71045; 76942; 80048; 80061; 82805; 83036; 84443; 85025; 85610; 85730; 86850; 86900; 86901; 90471; 90662; 90670; 93005; 93010; 93306; 93458; 93798; 94002; 94150; 94760; C1769; G0008; G0009; J0670; J0690; J1100; J1642; J1644; J1650; J1815; J1885; J2001; J2250; J2270; J2405; J3010; J3475; J3490; P9045; S0028